=== PATIENT | male | born 1960 | race Caucasian/White ===

== ENCOUNTER 2025-01-11 15:55 | Inpatient (IN) | payer MEDICARE, OTHER, SELFPAY ==
[2024-12-29 13:35] LABS: Magnesium 1.9 mg/dL (1.5-2.2)
[2024-12-29 13:52] LABS: Anion Gap 12 (5-15); BUN 12 mg/dL (4-19); BUN/Creat Ratio 17.8 RATIO (10-20); Calcium,Total 9.2 mg/dL (7.6-11.0); Carbon Dioxide 21.5 mmol/L (21.0-32.0); Chloride 97 mmol/L (98-108); Glucose 163 mg/dL (70-99); Potassium 4.5 mmol/L (3.3-5.1)
[2025-01-11] VITALS (13 sets, daily range): BP systolic 119–147; BP diastolic 74–86; PULSE 67–86; RESP 12–16; TEMP 36.1–36.6; O2SAT 95–100; BMI 28.7; BMI 28.8
--- NOTE | 2025-01-11 08:43 | PCM.PRE.AN2 ---
ASA Classification* ASA Classification ASA Classification: 2 Assessment & Plan Anesthesia* Anesthesia Assessment Anesthesia Assessment: Discussed sedation and/or anesthesia options, risks, benefits, and alternatives with patient/parents/legal guardian/POA. Questions invited. The patient/parents/legal guardian/POA seems to understand and agrees to proceed with anesthesia plan. Reviewed the physical assessment, medical history, allergy history and patient home medications list prior to surgery/procedure/anesthetic and documented any changes. Performed airway and anesthesia risk assessments. Anesthesia Type Anesthesia Type: General Anesthesia Focused Assessment* Airway Assessment Mouth opens: >3 cm Mallampati Score: II Labs Anesthesia Preop lab: CBC CHEMISTRY Potassium, (3.3-5.1) 4.5 mmol/L 12/29/24, 12:11 Sodium, (133-145) 131 mmol/L L 12/29/24, 12:11 Magnesium, (1.5-2.2) 1.9 mg/dL 12/29/24, 12:12 BUN, (4-19) 12 mg/dL 12/29/24, 12:11 Creatinine, (0.70-1.20) 0.66 mg/dL L 12/29/24, 12:11 Glucose, (70-99) 163 mg/dL H 12/29/24, 12:11 COAG Pre-Assessment Diagnosis/Proposed Procedure Planned Operative Procedure(s): ERAS, 360 Lumbar Fusion L3-4 and L4-5 Anesthesia History Anesthesia History - framer: Anesthesia History - framer Hx Hospitalization No 12/28/24 09:10 Any Problems With Anesthesia No 12/28/24 09:10 Cholinesterase deficiency No 12/28/24 09:10 You/Your Family Experience No 12/28/24 09:10 fever (hyperthermia) with Relationship Recent Exposure to Contagious Disease Does patient have nerve No 12/28/24 09:10 stimulator Patient instructed to have device shut off --Does patient have Pacemaker or ICD? When Was Last Pacemaker Check QUESTION #4 FULL TEXT: You/Your Family Experience fever (hyperthermia) with Anesthesia Last Oral Intake Last Oral intake: Last Oral Intake NPO since Meds taken in AM with sips of water? Meds patient instructed to take am of surgery PONV PONV - framer: PONV - framer Female No 12/28/24 09:10 HX of Motion Sickness No 12/28/24 09:10 HX of N/V After Surgery No 12/28/24 09:10 Non-Smoker Yes 12/28/24 09:10 Duration of Surgery greater Yes 12/28/24 09:10 than 60 minutes Number of Risk Factors 2 12/28/24 09:10 PONV Score Moderate Risk 12/28/24 09:10 Height & Weight Height & Weight: Anesthesia: Height & Weight Height 6 ft 01/06/25 11:02 Respiratory Assessment Respiratory Assessment - framer: Respiratory Tract Infection Hx - framer Hx Respiratory Tract Infection No 12/28/24 09:10 STOP Sleep Apnea STOP Sleep Apnea - framer: STOP Sleep Apnea - framer Hx Hypertension Yes: CONTROLLED ON MED 12/28/24 09:10 Hx Sleep Apnea No 12/28/24 09:10 CPAP BIPAP Do you snore loudly (louder No 12/28/24 09:10 than talking or can be heard Do you often feel tired/ No 12/28/24 09:10 fatigued/ sleepy during daytime? Has anyone observed you stop No 12/28/24 09:10 breathing during sleep? STOP Results Negative 12/28/24 09:10 QUESTION #5 FULL TEXT : Do you snore loudly (louder than talking or can be heard through closed doors)? Tobacco Use History Tobacco Use History - framer: Tobacco Use History - framer Tobacco Use Smoking Status Never smoker 12/28/24 09:10 Hx Tobacco Use No 12/28/24 09:10 Years Smoking Packs Smoked per Day Smoking Cessation Date was within the last 15 years Hx Smoking Cessation Date Hx Smoking Cessation Counseling Hematologic Medial History Hematologic Hx - framer: Hematologic Medical Hx - sourcing engineer Hx of Blood Transfusion No 12/28/24 09:10 Hx of Transfusion in last 3 No 12/28/24 09:10 Months Date of Last Transfusion (if within last 3 months) Ever experience any problems No 12/28/24 09:10 with transfusion(s)? Specify any problems Hx of Preganancy in last 3 N/A 12/28/24 09:10 Months Nurse Filling Out Transfusion VCHRISTIN 12/28/24 09:10 & Questions: Date: 12/28/24 12/28/24 09:10 Time: 09:13 12/28/24 09:10 Patient unable to answer at this time (ie. confused, unrespo /Reproduction History /Reproductive History - framer: /Reproductive Hx- framer Hx Now No 12/28/24 09:10 Gestational Age (in weeks): EDC: Hx Hx Para Hx Section SAB No 12/28/24 09:10 Active Medications Active Medications: Current Medications Generic Name Dose Route Start Last Admin Trade Name Freq PRN Reason Stop Dose Admin Acetaminophen 1,000 mg 01/11/25 10:45 Acetaminophen 500 Mg Tablet PO 01/11/25 10:46 PREOP ONE Cefazolin Sodium 2 gm/ Sodium 110 mls @ 150 mls/hr 01/11/25 10:45 Chloride IV 01/11/25 11:28 INTRAOP ONE Tranexamic Acid 1,000 mg/ 110 mls @ 440 mls/hr 01/11/25 10:45 Sodium Chloride IV 01/11/25 10:59 INTRAOP ONE Tranexamic Acid 1,000 mg/ 110 mls @ 440 mls/hr 01/11/25 10:45 Sodium Chloride IV 01/11/25 10:59 INTRAOP ONE Magnesium Sulfate 2 gm/ 104 mls @ 208 mls/hr 01/11/25 10:45 Dextrose IV 01/11/25 11:14 PREOP ONE Lactated Ringer's 1,000 mls @ 15 mls/hr 01/11/25 08:45 IV .Q48H DARREL Insulin Human Lispro 1 - 6 unit 01/11/25 10:45 Insulin Lispro 100 Unit/Ml Insuln.Pen SC 01/11/25 16:45 Q4H PRN PRN BG>/= 180, SEE PROTOCOL Protocol PFS Medical History Ambulates with cane Arthritis Back pain Injury of back Former smoker Chronic cough History of tibial fracture Lumbar stenosis with neurogenic claudication Lumbar stenosis DISH (diffuse idiopathic skeletal hyperostosis) Hip arthritis Scoliosis Tibia fracture High blood pressure High cholesterol Diabetes Home Medications ?Medication ?Instructions ?Recorded ?Last Taken ?Type acetaminophen 325 mg tablet 325 mg PO ONCE PRN pain 09/30/24 Unknown History (Tylenol) amlodipine 10 mg tablet 10 mg PO QDAY BP 09/30/24 Unknown History ascorbate calcium (vitamin C) 500 500 mg PO QDAY SUPPLEMENT 09/30/24 Unknown History mg tablet furosemide 20 mg tablet (Lasix) 20 mg PO DAILY DIURETIC 09/30/24 Unknown History gabapentin 300 mg capsule 300 mg PO QHS PAIN 09/30/24 Unknown History labetalol 100 mg tablet 100 mg PO BID BP 09/30/24 Unknown History losartan 100 mg tablet 100 mg PO QDAY BP 09/30/24 Unknown History metformin 1,000 mg tablet 1,000 mg PO BID DIABETES 09/30/24 Unknown History naproxen sodium 220 mg capsule 220 mg PO BID PRN pain 09/30/24 Unknown History (Aleve) Allergy/AdvReac Type Severity Reaction Status Date / Time chlorhexidine Allergy Severe Rash Verified 01/06/25 11:06 rosuvastatin Allergy Severe Muscle Verified 01/06/25 11:06 hurts Sulfa (Sulfonamide Allergy Severe Other Verified 01/06/25 11:06 Antibiotics) (sulfa drugs) Surgical History H/O left knee surgery Social History Smoking Status: Never smoker alcohol intake: current alcohol intake frequency: holidays/special occasions only Review of Systems (Anesthesia) ROS Narrative System reviewed and no additional complaints, except as documented.
[2025-01-11] MEDS: Lactated Ringers 1,000 ML 15 ML IV (09:07)
[2025-01-11] MEDS: Magnesium 2 GM for ERAS IV (09:07)
--- NOTE | 2025-01-11 10:08 | HP.PCM_ITS ---
History and Physical
--- NOTE | 2025-01-11 10:08 | PCM.HP.BLA ---
History and Physical Date of Admission: 01/11/25 MR#: [id number] Acct: [id number] Name: ENRIKE GORDON Rep #: [id number] : 1960 Provider: Dr. Cortez Birch MD Age/Sex: 64/M Location: [facility] [place] Status: Signed Intake Vital Signs 09/30/2509:05 01/06/2511:02 Height 6 ft 6 ft Weight: 215 lb 220 lb BMI 29.1 29.8 Intake Visit Reasons: lumbar spine Chief Complaint: Lumbar spine pre op Accompanied by: Mother Is patient in pain?: Yes Pain scale (1-10): 7 Allergies chlorhexidine Allergy (Severe, Verified 01/06/25 11:06) Rash rosuvastatin Allergy (Severe, Verified 01/06/25 11:06) Muscle hurts Sulfa (Sulfonamide Antibiotics) (sulfa drugs) Allergy (Severe, Verified 01/06/25 11:06) Other Medications ?Medication ?Instructions ?Recorded ?Confirmed ?Type acetaminophen 325 mg tablet 325 mg PO ONCE PRN pain 09/30/24 01/06/25 History (Tylenol) amlodipine 10 mg tablet 10 mg PO QDAY BP 09/30/24 01/06/25 History ascorbate calcium (vitamin C) 500 500 mg PO QDAY SUPPLEMENT 09/30/24 01/06/25 History mg tablet furosemide 20 mg tablet (Lasix) 20 mg PO DAILY DIURETIC 09/30/24 01/06/25 History gabapentin 300 mg capsule 300 mg PO QHS PAIN 09/30/24 01/06/25 History labetalol 100 mg tablet 100 mg PO BID BP 09/30/24 01/06/25 History losartan 100 mg tablet 100 mg PO QDAY BP 09/30/24 01/06/25 History metformin 1,000 mg tablet 1,000 mg PO BID DIABETES 09/30/24 01/06/25 History naproxen sodium 220 mg capsule 220 mg PO BID PRN pain 09/30/24 01/06/25 History (Aleve) Have you fallen in the past year?: No [facility] Medical History Ambulates with cane Arthritis Back pain Injury of back Former smoker Chronic cough History of tibial fracture Lumbar stenosis with neurogenic claudication Lumbar stenosis DISH (diffuse idiopathic skeletal hyperostosis) Hip arthritis Scoliosis Tibia fracture High blood pressure High cholesterol Diabetes Surgical History H/O left knee surgery Social History Smoking Status: Never smoker alcohol intake: current alcohol intake frequency: holidays/special occasions only HPI lumbar spine Details: This documentation accurately reflects the service provided and the decisions made by me, Dr. Cortez Birch MD 01/06/25 1101. Part of today?s visit was documented by Evan Browning MA, acting as scribe. ENRIKE GORDON is a 64 year old M here today for lumbar spine pre op. Patient doesn't have any pain today. He would like to know if he can go upstairs. The patient is a 64-year-old male presenting for evaluation and management of lumbar spinal stenosis and preparation for upcoming back surgery. The patient has a history of lumbar spinal stenosis, which has been causing significant discomfort and functional limitations. He reports experiencing severe pain and muscle spasms, particularly in the lower back, which have impacted his mobility and quality of life. The condition has progressed over time, leading to symptoms such as foot drop and increased fatigue in the legs. The patient is scheduled for back surgery to address the lumbar spinal stenosis, specifically targeting the L3-5 region. The surgical plan includes making an incision on the side of the abdomen and multiple small incisions in the back to relieve pressure on the spine and stabilize it with screws and rods. Post-surgery, the patient is expected to experience significant pain initially, but improvement is anticipated with time and rehabilitation. The patient has a known allergy to chlorhexidine, which necessitates the use of alternative antiseptics such as betadine for surgical preparation. He denies any allergies to iodine or shellfish, which allows for the use of iodine-based antiseptics. The patient has a history of diabetes mellitus, which is currently well-controlled with an A1c of 6.1. He is on medication for diabetes management and has been advised to maintain good dietary habits and mobility post-surgery to aid in recovery and minimize infection risk. - Musculoskeletal: Reports severe lower back pain and muscle spasms. Reports foot drop and increased leg fatigue. - Allergic/Immunologic: Reports allergy to chlorhexidine. Denies allergy to iodine or shellfish. - Endocrine: Reports diabetes mellitus, well-controlled with medication. Attestation: Documentation on this patient encounter was supported using ambient scribe technology/ voice AI technology. The patient consented to recording for the purpose of documenting the encounter. Provider reviewed content of the generated note prior to signature. 09/30/24: ENRIKE GORDON is a 64 year old M here today for lumbar spine. Patient is having pain in the lower back which is equally bilaterally. The pain can be sharp, stabbing, sore, aching, and throbbing pain. His left leg gets really weak when he has lower back pain. Patient hasn't had any numbness or tingling in the feet or toes. This has been going on for 11 years, but has been gradually been getting worse. Patient states that he slipped and fell and twisted his back bad. The next day he couldn't get up from laying down. The squad had to come help him. He went to the [facility] and they did xrays. Patient hasn't had any surgeries on his lower back. Walking for a long period of time makes the pain worse. Standing for a long period of time makes the pain worse. Bending over makes the pain worse.He can only walk for one block before he has to sit down. He has to lean on a shopping cart at the grocery store. He states his left foot flops when he walks. Patient has had back injections in the past by Dr. Osorio at [facility]. He has been doing the injections for a couple years. The injections does help sometimes, they don't last very long. Patient's last back injections was in May 2024. He did try physical therapy, and it didn't help. Patient is a type 1 diabetic, denies any blood thinners. He does not take a blood thinner. Patient denies any smoking, or drug use. Patient states that he does have balance problems sometimes. He does use a cane occasionally. He does report a fall in June, he fell off a semi trailer and fractured a few ribs. Patient has been using a back brace, and it doesn't help. Ortho Exam General General: Yes no acute distress Neurologic: Yes alert and Yes oriented x3 Psychologic: Yes reasonable and appropriate Spine SPINE TESTING CERVICAL THORACIC LUMBAR Musculoskeletal Strength 0=absent - 5=normal Details: Examination of back shows midline and paraspinal tenderness. Neurologic evaluation of the lower extremity shows 5 x 5 power except for left ankle dorsiflexion which is grade 4. There is no hyperreflexia. There is forward stooping posture. Coding Level of Care Code Off vis,est,level 4 Diagnoses Lumbar stenosis with neurogenic claudication M48.062 Other secondary scoliosis, lumbar region M41.56 Scoliosis type: other secondary scoliosis Spinal region: lumbar DISH (diffuse idiopathic skeletal hyperostosis) M48.10 Time Spent (min) 35 Assessment and Plan Assessment and Plan (1) Lumbar stenosis with neurogenic claudication: Status: Acute (2) Scoliosis: Status: Acute Qualifiers: Scoliosis type: other secondary scoliosis Spinal region: lumbar Qualified Code(s): M41.56 - Other secondary scoliosis, lumbar region (3) DISH (diffuse idiopathic skeletal hyperostosis): Status: Acute Plan Imaging show multilevel lumbar disc degeneration with severe central and foraminal stenosis at L3-4 and L4-5. Moderate disc degeneration and mild foraminal stenosis also noticed at L2-3 and L5-S1. MRI from May shows severe central stenosis at L3-4 and L4-5 with nerve compression. X-rays show degenerative scoliosis and DISH. 1. Lumbar spinal stenosis - The patient is scheduled for surgery to address lumbar spinal stenosis at the L3-5 level. - The procedure will involve decompression and stabilization with screws and rods. - Post-operative pain management and rehabilitation are planned to facilitate recovery. 2. Allergy to chlorhexidine - Alternative antiseptics such as betadine will be used for surgical preparation due to the patient's allergy to chlorhexidine. 3. Diabetes mellitus - The patient's diabetes is well-controlled with an A1c of 6.1. - Post-operative management will include maintaining good dietary habits and mobility to aid recovery and minimize infection risk. - Follow all pre-surgery instructions, including using betadine instead of chlorhexidine. - Maintain good dietary habits and stay active to aid recovery and minimize infection risk post-surgery. - Attend all scheduled follow-up appointments and physical therapy sessions to ensure proper recovery. Discussed this procedure in detail and explained the risks, benefits and alternatives. The risks of surgery include but are not limited to infection, bleeding, injury to nerves or vessels, need for further surgery, ileus, vascular injury, visceral injury, DVT, pulmonary embolism, pneumonia, atelectasis, cardiopulmonary event, pseudoarthrosis, hardware failure, gait abnormality, adjacent segment degeneration. Discussed post-surgery restrictions in detail such as no bending, lifting, or twisting. Answered all questions to the patient?s satisfaction. Patient understands and agrees to proceed with surgery. Consent was signed.Follow up two weeks post operatively or sooner if pain, swelling, numbness or associated symptoms, or concerns develop. All questions answered. Patient in agreement of plan.
[2025-01-11] MEDS: Lidocaine 1% (5 ml sdv) 5 ML Vial 10 ML IV (10:35)
[2025-01-11] MEDS: TRANEXAMIC ACID 1,000 MG/10 ML ML 1000 MG IV (10:45)
--- NOTE | 2025-01-11 11:30 | RAD_ITS ---
PROCEDURE: RAD/Lumbar Spine 2 or 3 Views
[2025-01-11] MEDS: Lactated Ringers 2,000 ML 2000 ML IV (13:07)
[2025-01-11] MEDS: fentaNYL 100 MCG/2 ML Ampul 200 MCG IV (13:10)
[2025-01-11] MEDS: Cefazolin 1 GM/5 ML Vial 4 GM IV (14:30)
[2025-01-11] MEDS: Ketorolac 30 MG/ML Syringe 15 MG IV (15:27)
--- NOTE | 2025-01-11 16:02 | OP.PCM_ITS ---
Procedures Musculoskeletal
--- NOTE | 2025-01-11 16:02 | PCM.OPRPT ---
Procedures Musculoskeletal [id number]: Other Procedure See Report Operative Report (Standard) Operative Information Date of Procedure: 01/11/25 Pre-Operative Diagnosis: L3-5 disc degeneration, stenosis of neurogenic claudication Post-Operative Diagnosis: Same Surgery/Procedure Performed: L3-5 oblique lumbar body fusion, anterior instrumentation precast concrete products installer: Yes In Store Banker: Dahlia Dobbins Tasks completed by first aid instructor: Closing, Removing tissue, Implanting device, Hemostasis: Electrocautery and Retracting Type of Anesthesia: General RN Documented Start/Stop Times: Operation Date: 01/11/25 10:45 Case Time Into Pre-Op 01/11/25 08:34 Out of Pre-Op 01/11/25 10:27 Anesthesia Start 01/11/25 10:30 Into Room 01/11/25 10:30 Procedure Start 01/11/25 11:17 Procedure End 01/11/25 15:47 Anesthesia End 01/11/25 15:54 Out of Room 01/11/25 15:54 Procedure Start Time: 11:17 Procedure Stop Time: 15:47 Select all DRAINS/GRAFTS/IMPLANTS that apply: Graft Graft details: Allograft cancellous chips, autologous iliac crest bone marrow aspirate and Implanted device Implanted device details: DePuy cougar lateral lumbar interbody cage, 4web 2 hole plate Estimated Blood Loss: 100 cc Specimen collected: No Description of surgery: Preoperative diagnosis: L3-5 disc degeneration, stenosis with neurogenic claudication Postoperative diagnosis: Same Name of procedures L3-5 oblique lumbar interbody fusion (OLIF), anterior instrumentation, minimally invasive left sided approach, lateral decubitus: ? L3-4 anterolateral spinal fusion 93919 ? L4-5 anterolateral fusion 83247/51 ? L3-4 insertion of cage 22841 ? L4-5 insertion of cage 34487/51 . L4-5 anterior instrumentation 84960 ? Bone graft aspirate left iliac crest separate incision ? Allograft cancellous chips Attending Surgeon: Dr. Cortez Birch Estimated blood loss: 100 mL Anesthesia: General Complications: None Indications: Patient is a 64-year-old pleasant gentleman who has had a long history of low back pain and bilateral lower extremity radiation, left foot weakness, difficulty walking distances. Xrays & MRI revealed L3-5 disc degeneration with stenosis with changes of disc above and below. After undergoing a prolonged period of nonoperative treatment, the patient elected to undergo surgical decompression & fusion. All surgical options were discussed with the patient including anterior and posterior approaches. All risks and benefits associated with the procedure were explained to the patient. The risks include but are not limited to infection, bleeding, injury to nerves and vessels including major vessels like IVC and aorta, persistent paresthesia, persistent pain, dural tear, need for further procedures, adjacent segment degeneration, pseudoarthrosis, hardware failure, retrograde ejaculation, paralytic ileus, etc. Procedure: The patient was identified in the preoperative holding suite using Unique patient identifiers. Skin was marked, consent was reviewed, and all questions were answered. The patient was then brought back to the operative room. A surgical timeout was performed to make sure correct procedure was being done on the correct patient and all operative room staff were on the same page. General endotracheal anesthesia was then given to the patient. Shine catheter was inserted. The patient was then carefully positioned in right lateral decubitus position with the left side up on a regular OR table. Axillary roll was placed and all bony prominences were well- padded. Hip positioners were placed in the posterior buttocks and anterior sternal area. The surgical area was prepped and draped in usual fashion. Preoperative antibiotic was injected IV as preoperative antibiotic. A final timeout was then again done just before starting the procedure. A 2 inch incision oblique was taken in the left lower quadrant of the abdomen 2 fingerbreadths away from the iliac crest and the lower ribs. Sharp dissection with Bovie was carried out up to the fascia covering the external oblique. The external oblique, internal oblique and transversus abdominis muscles were split along the muscle fibers and retroperitoneal space was entered. Sponge sticks were utilized to move the bowel and peritoneum [id number] and psoas muscle was exposed staying within the retroperitoneal plane. [employer] retractor system was positioned and the retractor blade was applied onto the psoas. The interval between psoas and midline structures was developed and appropriate retractors were placed. Once adequate interval was cleared, a disc space was identified and a marker x-ray was taken. This identified the L4-5 disc level. The prepsoas interval was then traced superiorly to expose the L3-4 disc. Annulotomy was done with a long handled knife. Pituitary was used to remove disc material. Curettes were used to prepare the endplates. Disc space spreaders were utilized to distract and increase the disc height. Near complete discectomy was performed. Trials of serially increasing sizes were used. A Jamshidi needle was used to aspirate bone marrow from the left anterior iliac crest through a separate incision and this aspirate was mixed with the allograft bone chips. A Depuy Loman cage of size of the 18 x 55 x 10 mm with 15 degrees lordosis was packed with corticocancellous allograft bone chips mixed with bone marrow aspirate. This was inserted into the L4-5 disc space. The retractors were then repositioned to expose the L3-4 disc and the procedure was repeated with complete discectomy and endplate preparation. Smaller disc distractors were also used to bluntly perform a contralateral annulotomy at both levels. Cage size was 18 x 55 x 10 mm at L3-4. AP and lateral C-arm pictures were taken to confirm good position of the cage. Some bone chips were also packed around the cages. L4-5 level was found to be significantly unstable after discectomy, and a decision was made to perform anterior instrumentation. A 2 hole 4web plate was placed above the cage, separate from the cage, with 2 x 45 mm screws going to the L4 and L5 bodies. C arm showed good positioning of plate and screws. Hemostasis was confirmed. The retractor blades were removed. Closure was done in layers with a continuous strand of # 1 Vicryl in all muscle layers. 2-0 Vicryl was used for subcutaneous tissue and 4-0 for Monocryl for the skin. Steri-Strips were applied and 4 x 4 gauze and Tegaderm were applied. Car Refinisher Dahlia Dobbins PA-C. My physician promotions assistant was a vital part of this case. They were important in appropriate retraction during the case, and protection of soft tissues during the procedure. Their intimate knowledge of the case and my steps aided in safe and expedient completion of the procedure as well as appropriate position of the patient during the surgery. They were also vital in assisting with closure under my direct supervision. Surgical Findings: See operative note Complications Complications: No
--- NOTE | 2025-01-11 16:04 | POSTOP.ANE_ITS ---
Anesthesia: Postop Eval I
--- NOTE | 2025-01-11 16:04 | PCM.POST.ANE ---
Anesthesia: Postop Eval I Current Vital Signs Temperature: 97 F Pulse Rate: 74 Blood Pressure: 131/86 Respiratory Rate: 16 Pulse Ox: 100 Oxygen Delivery Method: Simple Mask Oxygen Flow Rate (L/min): 6 Assessment Airway patent: Yes Spontaneous unlabored respirations: Yes Mental status: Awake and Calm nausea: No Vomiting: No Anesthesia Complication: No Fluid Hydration Crystalloid volume administer (ml): 2,000 Total IV fluid infused: 2,000 Progress Note Anesthesia document: Postop Eval 1 completed: Yes
--- NOTE | 2025-01-11 16:06 | OP.PCM_ITS ---
Procedures Musculoskeletal
--- NOTE | 2025-01-11 16:06 | PCM.OPRPT ---
Procedures Musculoskeletal 20xxx-29xxx: Other Procedure See Report Operative Report (Standard) Operative Information Date of Procedure: 01/11/25 Pre-Operative Diagnosis: L3-5 disc degeneration, stenosis of neurogenic claudication Post-Operative Diagnosis: Same Surgery/Procedure Performed: L3-5 posterior spinal instrumented fusion j2ee application developer: Yes Computer Support Specialist: Dahlia Dobbins Tasks completed by leasing assistant: Closing, Removing tissue, Implanting device, Hemostasis: Electrocautery and Retracting Type of Anesthesia: General RN Documented Start/Stop Times: Operation Date: 01/11/25 10:45 Case Time Into Pre-Op 01/11/25 08:34 Out of Pre-Op 01/11/25 10:27 Anesthesia Start 01/11/25 10:30 Into Room 01/11/25 10:30 Procedure Start 01/11/25 11:17 Procedure End 01/11/25 15:47 Anesthesia End 01/11/25 15:54 Out of Room 01/11/25 15:54 Procedure Start Time: 11:17 Procedure Stop Time: 15:47 Select all DRAINS/GRAFTS/IMPLANTS that apply: Graft Graft details: Allograft cancellous chips and Implanted device Implanted device details: DePuy [employer]rote[employer]er prime pedicle screw instrumentation Estimated Blood Loss: 100 cc Specimen collected: No Description of surgery: Preoperative diagnosis: L3-5 disc degeneration, stenosis with neurogenic claudication Postoperative diagnosis: Same Name of procedures: L3-5 posterior percutaneous pedicle screw instrumented fusion, prone: ? L3-4 posterior spinal fusion 56722 ? L3-5 posterior pedicle screw instrumentation [id number] ? L4-5 posterior fusion 72803/51 ? Allograft cancellous chips [id number] Attending Surgeon: Dr. Cortez Birch Estimated blood loss: 100 mL (total for entire case) Anesthesia: General Complications: None Description of procedure: After the anterior procedure was complete, the patient was then turned supine. The patient was then transferred to [place] table in prone position. Back was prepped and draped in usual fashion. C-arm AP view was then taken. C-arm was positioned in a way that L3 was centralized and superior endplate of was parallel to the beam. Spinous process was centered between the pedicles. Midline was marked with skin marker and lateral borders of the pedicles were also marked. Skin marker was also utilized to dante transversely across the middle of the pedicles at L3. 2 transverse paramedian incisions of 1 inch were placed. The fascia was incised vertically. Finger dissection was utilized to palpate the transverse process and facet joint. Viper Prime screws with towers were inserted and docked onto the transverse processes. This was then slowly moved medially to reach the superior articular process of L3. This was then confirmed on C-arm and then a mallet was utilized to drive the trocar into the pedicle going up to the medial wall of the pedicle on AP view. This was performed both sides. C-arm lateral view confirmed that the tip of the trocar was in the vertebral body, and the screw was advanced into the pedicle and vertebral body. This was repeated similarly at L4 and L5 bilaterally. Screw sizes were 7 x 50 mm at L3, L4, L5 on both sides. 90 mm precontoured titanium 5.5 mm lordotic rizwana on both sides were then passed through the screw extensions and reduced down to the screws with the help of Evoinfinityer instrumentation system on both sides. AP and lateral view of the C-arm showed good positioning of the screws and cages. Final tightening with the torque screwdriver was then completed. [place] was utilized to roughen the facet joint at L3-4 and L4-5 on the right side. Cancellous allograft bone chips mixed with bone marrow aspirate were then placed over this decorticated area. Hemostasis was achieved. Closure was done in layers with 0 Vicryls for the fascia, 2-0 Vicryls for the subcutaneous tissue, and Monocryl for the skin. Dermabond was applied. Dressings were applied covered with Tegaderm. The patient was then turned supine onto a hospital bed. The patient was extubated and taken to PACU in stable condition. The patient tolerated the procedure well and no complications occurred. Depuy [place]is cage & Viper Prime minimally invasive pedicle screw instrumentation system was utilized in this case. No dural tear was identified intraoperatively. I was present for the entirety of the case and performed the surgery. Horizontal Drill Operator Dahlia Dobbins PA-C. My physician library media assistant was a vital part of this case. They were important in appropriate retraction during the case, and protection of soft tissues during the procedure. Their intimate knowledge of the case and my steps aided in safe and expedient completion of the procedure as well as appropriate position of the patient during the surgery. They were also vital in assisting with closure under my direct supervision. Surgical Findings: See operative note Complications Complications: No
--- NOTE | 2025-01-11 16:23 | POSTOPAN2_ITS ---
Anesthesia Postop Eval I Sum
--- NOTE | 2025-01-11 16:23 | PCM.POSTANE2 ---
Anesthesia Postop Eval I Sum Postop Eval Completion status Anesthesia document: Postop Eval 1 completed: Yes Anesthesia Postop Eval I Summary Anesthesia Postop Eval I Summary: Anesthesia Postop Eval I: Assessment Summary Airway patent Yes 01/11/25 16:04 [email or web address] Spontaneous unlabored Yes 01/11/25 16:04 KENO MANAGER.[email or web address] respirations Mental status Awake,Calm 01/11/25 16:04 [email or web address] nausea No 01/11/25 16:04 KENO MANAGER.[email or web address] Vomiting No 01/11/25 16:04 KENO MANAGER.[email or web address] Anesthesia Postop Eval I: Fluid Summary Crystalloid volume administer 2,000 01/11/25 16:04 KENO [email or web address] (ml) Colloids volume administered ( ml) Blood Product volume administered (ml) Total IV fluid infused 2,000 01/11/25 16:04 KENO MANAGER.[email or web address] Anesthesia Postop Eval I: Summary Notes Anesthesia Complication No 01/11/25 16:04 KENO MANAGER.TANIA Anesthesia Complication Comment: Post-operative progress note Anesthesia: Postop Eval II Evaluation Mental status: Awake and Calm Pain Level: 4 nausea: No Vomiting: No Complications Anesthesia Complication: No
[2025-01-11] MEDS: 0.9% Saline Lock 10 ML Syringe IV (18:20)
--- NOTE | 2025-01-11 18:50 | PCM.CONS.GEN ---
Assessment & Plan Assessment/Plan (1) Lumbar stenosis with neurogenic claudication: PLAN: Plan Patient is a 64-year-old male who presented [facility] on 01/11/2025 for planned lumbar fusion procedure. Medicine consulted postoperatively for medical management. 1. L3-5 disc generation with stenosis and neurogenic claudication ? Orthopedic surgery primary. S/p L3-5 posterior spinal instrumented fusion procedure with Dr. Birch on 01/11. Tolerated procedure well, no intraoperative complications noted. Postoperative pain control, DVT prophylaxis and further management per orthopedics. Continue home gabapentin at night. Follow-up a.m. labs. PT/OT/case management consulted. 2. Hypertension ? Mildly hypertensive to the 130s systolic postoperatively. Okay to resume home labetalol, losartan, Lasix and amlodipine. 3. Type 2 diabetes mellitus ? Blood glucose 141 postoperatively. A1c 6.1% on 12/29. Will treat with medium dose sliding scale insulin with meals while inpatient. Will be okay to resume home metformin on discharge. DVT prophylaxis: Will defer to orthopedics Total clinical time spent by myself addressing the patient's medical issues, reviewing all the data, and collaborating with patient's care team: 37 minutes. HPI Consult Data Date of Consult: 01/11/25 HPI Narrative Reason for Consultation: Postoperative medical management HPI Narrative: ENRIKE GORDON, is a 64 M who presented to [facility] on 01/11/2025 for planned orthopedic procedure. Medicine consulted postoperatively for medical management. Patient had L3-5 posterior spinal instrumented fusion done with Dr. Birch this afternoon. Tolerated procedure well, no intraoperative complications noted. I saw the patient at bedside this evening. Patient was mildly fatigued appearing but otherwise sitting back comfortably in bed, conversing normally, in no acute distress. He was eating some dinner when I saw him and tolerating this without issue. He reported mild low back pain currently. Denied any other concerns at this time. [facility] Medical History Ambulates with cane Arthritis Back pain Injury of back Former smoker Chronic cough History of tibial fracture Lumbar stenosis with neurogenic claudication Lumbar stenosis DISH (diffuse idiopathic skeletal hyperostosis) Hip arthritis Scoliosis Tibia fracture High blood pressure High cholesterol Diabetes Home Medications ?Medication ?Instructions ?Recorded ?Last Taken ?Type acetaminophen 325 mg tablet 325 mg PO ONCE PRN pain 09/30/24 Unknown History (Tylenol) amlodipine 10 mg tablet 10 mg PO QDAY BP 09/30/24 01/11/25 History ascorbate calcium (vitamin C) 500 500 mg PO QDAY SUPPLEMENT 09/30/24 01/10/25 History mg tablet furosemide 20 mg tablet (Lasix) 20 mg PO DAILY DIURETIC 09/30/24 01/09/25 History gabapentin 300 mg capsule 300 mg PO QHS PAIN 09/30/24 01/09/25 History labetalol 100 mg tablet 100 mg PO BID BP 09/30/24 01/11/25 History losartan 100 mg tablet 100 mg PO QDAY BP 09/30/24 01/11/25 History metformin 1,000 mg tablet 1,000 mg PO BID DIABETES 09/30/24 01/10/25 History naproxen sodium 220 mg capsule 220 mg PO BID PRN pain 09/30/24 01/10/25 History (Aleve) Allergy/AdvReac Type Severity Reaction Status Date / Time chlorhexidine Allergy Severe Rash Verified 01/11/25 08:52 rosuvastatin Allergy Severe Muscle Verified 01/11/25 08:52 hurts Sulfa (Sulfonamide Allergy Severe Other Verified 01/11/25 08:52 Antibiotics) (sulfa drugs) Surgical History H/O left knee surgery Social History Smoking Status: Never smoker alcohol intake: current alcohol intake frequency: holidays/special occasions only ROS Constitutional Constitutional: Reports fatigue; Denies chills, fever(s) or weakness Cardiovascular Cardiovascular: Denies chest pain Respiratory/Chest Respiratory/Chest: Denies shortness of breath at rest Gastrointestinal Gastrointestinal: Denies abdominal pain Musculoskeletal Musculoskeletal: Reports back pain; Denies arthralgias or myalgias Neurologic Neurologic: Denies dizziness, focal weakness, headache(s), numbness or tingling Physical Exam Const alert, oriented x3, no apparent distress and average body habitus Constitutional Narrative: Upper middle-aged male, mildly fatigued appearing, otherwise sitting back comfortably in bed, conversing normally, in no acute distress. General Appearance: cooperative and comfortable HEENT normocephalic, head/scalp atraumatic, hearing grossly normal bilaterally, nasal mucous membranes and turbinates normal and moist oral mucous membranes Eyes PERRL, EOMs intact bilaterally and conjunctivae normal Neck full ROM Chest inspection of chest normal Resp normal respiratory effort, normal air movement, no use of accessory muscles and clear to auscultation bilaterally Cardio regular rate, regular rhythm, no murmurs and peripheral pulses 2+ throughout GI normal to inspection, nondistended, normoactive bowel sounds, soft to palpation, non-tender and non-distended Back/Spine Back/Spine Narrative: Surgical dressing in place. Mild tenderness to palpation noted. Extremity normal to inspection and no pedal edema Skin no rashes or lesions noted Neuro moves all extremities and no focal motor deficits Psych mental status grossly normal Lab / Micro Data 12/29/24 12:11 Labs: Laboratory Results - last 24 hr 01/11/25 08:57: POC Glucose 180 H 01/11/25 12:04: POC Glucose 164 H 01/11/25 14:28: POC Glucose 141 H Charges/Coding Visit Charges Inpatient E&M: 85413 Subs Hosp L2
[2025-01-11] MEDS: Senna/Docusate Sodium 1 Tablet 2 TABLET PO (21:12)
[2025-01-11] MEDS: Cefazolin 2 GM in 0.9% Normal Saline (100mL Bag) 100 ML IV (21:32)
[2025-01-12 01:38] VITALS: BP 136/74; PULSE 81; RESP 16; TEMP 36.6; O2SAT 97
[2025-01-12] MEDS: Cefazolin 2 GM in 0.9% Normal Saline (100mL Bag) 100 ML IV (05:50)
--- NOTE | 2025-01-12 07:00 | RAD_ITS ---
PROCEDURE: RAD/Lumbar Spine 2 or 3 Views
[2025-01-12 07:13] LABS: Hematocrit 29.8 % (40-54); Hemoglobin 10.5 g/dL (13.0-16.5); Immature Granulocytes Count 0.040 X10^3/uL (0.0-0.0); Mean Corp Hgb Conc 35.2 g/dL (32-36); Mean Corpuscular Volume 91.7 fL (80-94); Mean Platelet Vol. 9.5 fl (6.2-12.0); NRBC Flagged by Analyzer 0 % (0-5); Platelet Count 185 K/mm3 (150-450); RBC Distribution Width CV 12.7 % (11.6-14.6); RBC Distribution Width SD 42.5 fl (35.1-43.9); Red Blood Count 3.25 M/mm3 (4.6-6.2); White Blood Count 7.5 K/mm3 (4.4-11.0)
[2025-01-12 07:38] LABS: Anion Gap 10 (5-15); BUN 16 mg/dL (4-19); BUN/Creat Ratio 18.1 RATIO (10-20); Calcium,Total 8.2 mg/dL (7.6-11.0); Carbon Dioxide 22.6 mmol/L (21.0-32.0); Chloride 96 mmol/L (98-108); Estimated Creatinine Clearance 99.51 ml/min (50-250); Glucose 145 mg/dL (70-99); Potassium 4.0 mmol/L (3.3-5.1)
[2025-01-12 08:00] VITALS: O2SAT 97
[2025-01-12 08:01] VITALS: BP 128/78; PULSE 76; RESP 18; TEMP 36.5; O2SAT 94
[2025-01-12] MEDS: Senna/Docusate Sodium 1 Tablet 2 TABLET PO (08:56)
--- NOTE | 2025-01-12 09:19 | PCM.PN.HOSP ---
Subjective Subjective No issues overnight Objective Data Objective Data Vital Signs: Vital Signs Temp Pulse Resp BP Pulse Ox O2 Del Method O2 Flow Rate 97.7 F L 76 18 128/78 H 94 Room Air 4 01/12/25 08:01 01/12/25 08:01 01/12/25 08:01 01/12/25 08:01 01/12/25 08:01 01/12/25 08:01 01/11/25 17:50 Oxygen Flow Rate (L/min) 4 Oxygen Delivery Method Room Air Weight: 213 lb Body Mass Index (BMI) 28.8 Intake & Output: Intake and Output for Last 24 Hours 01/11/25 01/12/25 01/13/25 03:59 03:59 03:59 Intake Total 414 / 414 447. / 447.25 Output Total 900 / 900 Balance -486 / -486 447. / 447.25 Lab / Micro Data 01/12/25 06:35 01/12/25 06:35 Labs: Laboratory Results - last 24 hr 01/11/25 08:57: POC Glucose 180 H 01/11/25 12:04: POC Glucose 164 H 01/11/25 14:28: POC Glucose 141 H 01/11/25 21:29: POC Glucose 205 H 01/12/25 06:35: WBC 7.5, RBC 3.25 L, Hgb 10.5 L, Hct 29.8 L, MCV 91.7, MCH 32.3 H, MCHC 35.2, RDW Std Deviation 42.5, RDW Coeff of Analisa 12.7, Plt Count 185, MPV 9.5, Immature Gran % (Auto) 0.500, Neut % (Auto) 73.8 H, Lymph % (Auto) 14.6 L, [place] % (Auto) 10.9 H, Eos % (Auto) 0.1, Baso % (Auto) 0.1, Absolute Neuts (auto) 5.6, Absolute Lymphs (auto) 1.10, Nucleated RBC % 0, Sodium 128 L, Potassium 4.0, Chloride 96 L, Carbon Dioxide 22.6, Anion Gap 10, BUN 16, Creatinine 0.88, Estim Creat Clear Calc 99.51, Est GFR (MDRD) Non-Af 95, BUN/Creatinine Ratio 18.1, Glucose 145 H, Calcium 8.2 01/12/25 06:41: POC Glucose 150 H Micro: Microbiology 12/29/24 12:11 Swab (Method) Nasal Screen MRSA/MSSA - Final Radiography Diagnostic Testing: Radiology Impression Lumbar Spine X-Ray 01/11/25 11:30 IMPRESSION: No radiographic evidence for acute abnormality. Moderate diffuse spondylosis. Intraoperative images from decompression and fusion at L3-L4 and L4-L5 with unremarkable transpedicular screws and disc spacer. Reading [facility] Lum[facility] Sp[facility] X-Ray 01/12/25 07:00 IMPRESSION: Uncomplicated posterior fusion. Large osteophytes at the opposing endplates. Reading Location: [facility] Physical Exam Narrative General: Alert, Oriented x3, Cooperative, No apparent distress HEENT: Atraumatic, PERRLA, EOMI, Normocephalic Oral: Moist Mucosa Neck: Supple, No JVD Lungs: Diminished, Normal air movement, No rhonchi, No wheeze, No rales Cardiovascular: Regular rate, Regular Rhythm, Normal S1, Normal S2, No murmurs Abdomen: Soft, Non Tender, Non-Distended, No Hepato-splenomegaly Extremities: No edema, Capillary Refill Less than 3 Seconds Skin: Dressing CDI Musculoskeletal: No Tenderness to Palpation of Joints or Extremities Neurological: No focal neurological deficits, moves all extremities Psych/Mental Status: Normal Affect, Appropriate Assessment & Plan Assessment/Plan (1) Lumbar stenosis with neurogenic claudication: PLAN: Plan 1. L3-5 disc degeneration with stenosis and neurogenic claudication status post L3-5 fusion on 01/11/2025 ? Discharge planning per primary ? PT/OT ? Pain management per primary ? Sodium level should improve as he takes increased p.o. I do recommend outpatient monitoring by his PCP ? Medically stable for discharge at this time 2. Essential HTN ? Renal function is stable ? Resume his home medications ? Will monitor and make adjustments as necessary 3. DM2 ? A1c of 6.1 ? Continue sliding scale insulin ? Accu-Chek ? Resume metformin on discharge DVT per primary Charges/Coding Visit Charges Inpatient E&M: 38342 Subs Hosp L2
--- NOTE | 2025-01-12 10:08 | PCM.PN.ORT ---
Subjective Subjective Postop day 1 L3-5 fusion. Patient says that his pain has been generally well controlled. Patient has been up and walking to the bathroom and in short distances. He does report some tightness in his lower back. He also reports a left anterior thigh pain and slight weakness, this is most likely related to the incision. The patient has passed gas, the patient was seen this morning before breakfast, so long as he does not have any nausea or vomiting and he walks well with therapy today he can go home. Seen with Dr. Birch. Objective Data Objective Data Vital Signs: Vital Signs Temp Pulse Resp BP Pulse Ox O2 Del Method O2 Flow Rate 97.7 F L 76 18 128/78 H 94 Room Air 4 01/12/25 08:01 01/12/25 08:01 01/12/25 08:01 01/12/25 08:01 01/12/25 08:01 01/12/25 08:01 01/11/25 17:50 Oxygen Flow Rate (L/min) 4 Oxygen Delivery Method Room Air Weight: 213 lb Body Mass Index (BMI) 28.8 Intake & Output: Intake and Output for Last 24 Hours 01/10/25 01/11/25 01/12/25 23:59 23:59 23:59 Intake Total 304 / 304 557.25 / 557.25 Output Total 900 / 900 Balance -596 / -596 557.25 / 557.25 Lab / Micro Data 01/12/25 06:35 01/12/25 06:35 Labs: Laboratory Results - last 24 hr 01/11/25 12:04: POC Glucose 164 H 01/11/25 14:28: POC Glucose 141 H 01/11/25 21:29: POC Glucose 205 H 01/12/25 06:35: WBC 7.5, RBC 3.25 L, Hgb 10.5 L, Hct 29.8 L, MCV 91.7, MCH 32.3 H, MCHC 35.2, RDW Std Deviation 42.5, RDW Coeff of Analisa 12.7, Plt Count 185, MPV 9.5, Immature Gran % (Auto) 0.500, Neut % (Auto) 73.8 H, Lymph % (Auto) 14.6 L, [place] % (Auto) 10.9 H, Eos % (Auto) 0.1, Baso % (Auto) 0.1, Absolute Neuts (auto) 5.6, Absolute Lymphs (auto) 1.10, Nucleated RBC % 0, Sodium 128 L, Potassium 4.0, Chloride 96 L, Carbon Dioxide 22.6, Anion Gap 10, BUN 16, Creatinine 0.88, Estim Creat Clear Calc 99.51, Est GFR (MDRD) Non-Af 95, BUN/Creatinine Ratio 18.1, Glucose 145 H, Calcium 8.2 01/12/25 06:41: POC Glucose 150 H Micro: Microbiology 12/29/24 12:11 Swab (Method) Nasal Screen MRSA/MSSA - Final Radiography Diagnostic Testing: Radiology Impression Lumbar Spine X-Ray 01/11/25 11:30 IMPRESSION: No radiographic evidence for acute abnormality. Moderate diffuse spondylosis. Intraoperative images from decompression and fusion at L3-L4 and L4-L5 with unremarkable transpedicular screws and disc spacer. Reading Location: [place] [id number] Lumbar Spine X-Ray 01/12/25 07:00 IMPRESSION: Uncomplicated posterior fusion. Large osteophytes at the opposing endplates. Reading Location: [id number] Physical Exam Narrative Neurological examination of the lower extremity showed 5X5 power. Increased pain with hip flexion on the left. Normal sensation across all dermatomes. Physical examination of the back and belly shows Tegaderm and gauze CDI. Const alert, oriented x3 and no apparent distress Assessment & Plan Assessment/Plan (1) Status post lumbar spinal fusion: PLAN: Plan Postop day 1 L3-5 fusion. Obtained and reviewed x-rays today which show hardware and bone graft in good position. Patient has passed gas and will be advanced to a regular diet. Awaiting PT/OT evaluation. Most likely the patient will be able to be discharged home safely today. Home-going meds include oxycodone, acetaminophen, meloxicam, methocarbamol, senna. OARRS reviewed. Reviewed and educated on the use of the incentive spirometer. Reviewed and educated on back precautions of no bending, lifting, twisting greater than 5 pounds. He will follow-up in the clinic in 2 weeks. Patient is in agreement.
[2025-01-12 11:31] VITALS: BP 101/57; PULSE 68; RESP 18; TEMP 37.1; O2SAT 97
--- NOTE | 2025-01-12 11:52 | CASEMGMT ---
Dx:360 lumbar fusion LACE:2 6-Clicks:19 Medical record reviewed and patient evaluated for identification of discharge planning needs. Based on this review, at this time criteria are not present to indicate a need for discharge planning. Will remain available to assist with discharge planning needs as identified or requested. Noted PT and OT evals. Pt has DME at home.
--- NOTE | 2025-01-12 12:27 | DCINST_ITS ---
Discharge Instructions
--- NOTE | 2025-01-12 12:27 | PCM.DC ---
Discharge Instructions DC O2, CPAP, BIPAP needs Home O2 Discharge instructions: No Follow Up Care Test Results: Test results from this visit will be discussed in further detail at your follow-up appointment, if applicable. Discharge Plan Admission Admit Date/Time: 01/11/25 15:55 Attending Provider: Cortez Birch Primary Care Provider: Daniel Gambino Consulting Providers: Shreyas Prakash Instructions Patient Instructions: Lumbar Fusion Dc Additional Instructions / Restrictions: Keep Tegaderm and gauze clean and dry. If Tegaderm is intact, okay to shower. After 5 days remove Tegaderm and gauze and cover with a Band-Aid. Replace Band-Aid daily thereafter. No bending lifting or twisting. Follow-up in clinic in 2 weeks. Discharge Orders/Prescriptions Prescriptions: New acetaminophen 500 mg Tablet 1,000 mg PO Q6H Qty: 30 0RF meloxicam 15 mg Tablet 15 mg PO DAILY Qty: 30 0RF Rx Instructions: take once a day methocarbamol 500 mg Tablet 750 mg PO TID PRN (Reason: pain/spasms) Qty: 30 0RF oxycodone 5 mg Tablet 2.5 - 5 mg PO Q6H PRN (Reason: pain) 7 Days Qty: 28 0RF sennosides-docusate sodium [Stimulant Laxative Plus] 8.6-50 mg Tablet 2 tab PO BID PRN (Reason: constipation) Qty: 30 0RF Continued gabapentin 300 mg capsule 300 mg PO QHS losartan 100 mg tablet 100 mg PO QDAY metformin 1,000 mg tablet 1,000 mg PO BID amlodipine 10 mg tablet 10 mg PO QDAY labetalol 100 mg tablet 100 mg PO BID furosemide [Lasix] 20 mg tablet 20 mg PO DAILY ascorbate calcium (vitamin C) 500 mg tablet 500 mg PO QDAY Discontinued acetaminophen [Tylenol] 325 mg tablet 325 mg PO ONCE PRN (Reason: pain) naproxen sodium [Aleve] 220 mg capsule 220 mg PO BID PRN (Reason: pain) Disposition Disposition (needs filled in before D/C Order can be placed): Home, Self Care
--- NOTE | 2025-01-12 13:19 | PHA.DC_ITS ---
Pharmacy DC Med Counseling
--- NOTE | 2025-01-12 13:19 | PHA.DC.COU.R ---
Pharmacy [facility] has performed discharge medication counseling for this patient. The patient was counseled on the following discharge medications and changes in medications for homegoing review. - Acetaminophen 500 mg tablet, Meloxicam 15 mg tablet, Methocarbamol 500 mg tablet, Oxycodone 5 mg tablet, Sennosides/docusate 8.6/50 mg tablet The Reason for Use, instructions for use, and potential side effects were reviewed for all new medications. The patient's questions regarding all of their medications were answered. The patient was able to verbally demonstrate an understanding of their discharge medications. Medications at Discharge Home Medications amlodipine 10 mg tablet 10 mg PO QDAY BP 09/30/24 ascorbate calcium (vitamin C) 500 mg tablet 500 mg PO QDAY SUPPLEMENT 09/30/24 furosemide 20 mg tablet (Lasix) 20 mg PO DAILY DIURETIC 09/30/24 gabapentin 300 mg capsule 300 mg PO QHS PAIN 09/30/24 labetalol 100 mg tablet 100 mg PO BID BP 09/30/24 losartan 100 mg tablet 100 mg PO QDAY BP 09/30/24 metformin 1,000 mg tablet 1,000 mg PO BID DIABETES 09/30/24 acetaminophen 500 mg tablet 1,000 mg (2 x 500 mg) PO Q6H #30 tabs 01/12/25 meloxicam 15 mg tablet 15 mg PO DAILY #30 tabs 01/12/25 methocarbamol 500 mg tablet 750 mg (1.5 x 500 mg) PO TID PRN pain/spasms #30 tabs 01/12/25 oxycodone 5 mg tablet 2.5 - 5 mg (0.5 - 1 x 5 mg) PO Q6H PRN pain 7 days #28 tabs 01/12/25 sennosides 8.6 mg-docusate sodium 50 mg tablet (Stimulant Laxative Plus) 2 tab PO BID PRN constipation #30 tabs 01/12/25
[2025-01-12 14:10] VITALS: BP 118/61; PULSE 72; RESP 17; TEMP 37; O2SAT 98
== END 2025-01-12 14:25 | disposition home or self-care (01) | DRG 428 ==
PROVIDERS: Anesthesiology; Student in an Organized Health Care Education/Training Program; Admitting Provider Orthopaedic Surgery Orthopaedic Surgery of the Spine; PCP Family Medicine; Referring Provider Orthopaedic Surgery Orthopaedic Surgery of the Spine; Visit Provider Orthopaedic Surgery Orthopaedic Surgery of the Spine
PROC: 0SG10A0 Fusion of 2 or more Lumbar Vertebral Joints with Interbody Fusion Device, Anterior Approach, Anterior Column, Open Approach (ICD-10-PCS; principal; 2025-01-11 10:15)
DX: M48.062 Spinal stenosis, lumbar region with neurogenic claudication (principal); M41.56 Other secondary scoliosis, lumbar region; E11.9 Type 2 diabetes mellitus without complications; I10 Essential (primary) hypertension; M48.16 Ankylosing hyperostosis [Forestier], lumbar region; M51.369 Other intervertebral disc degeneration, lumbar region without mention of lumbar back pain or lower extremity pain; Z79.84 Long term (current) use of oral hypoglycemic drugs; Z79.899 Other long term (current) drug therapy
CPT/HCPCS: 36415; 72100; 76000; 80048; 82962; 83036; 83735; 85025; 86850; 86900; 86901; 87081; 94668; 97162; 97165; C1713; A4216; J2405